=== PATIENT | female | born 1980 | race Caucasian/White ===

== ENCOUNTER 2017-12-09 20:21 | Emergency (ER) | payer BC, SELFPAY ==
[2017-12-09] MEDS ORDERED: Adacel (T-DAP) 0.5 ML VIAL ONE (20:34)
[2017-12-09] MEDS ORDERED: Cephalexin 500 MG CAP ONE (20:48)
== END 2017-12-09 21:02 | disposition home or self-care (01) ==
LOC: BURERS 20:21
DX: S60.450A Superficial foreign body of right index finger, initial encounter (principal); W45.8XXA Other foreign body or object entering through skin, initial encounter
CPT/HCPCS: 90715; 99283